=== PATIENT | female | born 1990 | race American Indian/Alaskan Native ===

== ENCOUNTER 2018-06-17 10:17 | Emergency (ER) | payer MEDICAID, OTHER ==
[2018-06-17 11:11] LABS: Bilirubin,Urine NEG (Negative); Blood,Urine NEG (Negative); Color,Urine Amber (Yellow); Mucus,Urine 1+ /HPF; Protein,Urine <15 mg/dL mg/dL (Negative)
[2018-06-17] MEDS ORDERED: ZOFRAN IV ONE (11:21)
[2018-06-17] MEDS ORDERED: NACL 0.9% 1000 ML 1,000 ML IV ONE (11:21)
--- NOTE | 2018-06-17 11:24 | Emergency Department Report ---
HPI - General Chief Complaint: Abdominal Pain Time Seen by Provider: 06/17/18 11:08 - HPI HPI: 27-year-old -[place] female presents to the emergency department with a complaint of a 3 day history of nausea and vomiting with some intermittent abdom inal pain all now about 8 weeks . The patient had the confirmed at her [facility] office, [place]. She denies any vaginal bleeding, dysuria, vaginal discharge but did wake up this morning with some diarrhea. She has not been able to take her vitamin the past 3 days secondary to the nausea and vomiting. She is unable to keep down both liquids and solids. No recent travel or sick contacts at home. ED Past Medical Hx - Past Medical History Previous Medical History?: No Hx Hypertension: No Hx Diabetes: No Hx Deep Vein Thrombosis: No Hx Renal Disease: No Hx Sickle Cell Disease: No Hx Seizures: No Hx Asthma: No Hx HIV: No - Surgical History Past Surgical History?: No - Social History Smoking Status: Never Smoker Substance Use Type: None - Medications Home Medications: Home Medications Medication Instructions Recorded Confirmed Last Taken Type Albuterol Sulfate [Ventolin HFA] 2 puff IH Q4H PRN #1 hfa.aer.ad 10/04/14 08/16/15 07/05/15 Rx Azithromycin [Zithromax Z-ELIZABETH] 250 mg PO DAILY #1 pkg 10/04/14 08/16/15 Unknown Rx Loratadine [Claritin] 10 mg PO DAILY #30 tablet 10/04/14 08/16/15 Unknown Rx predniSONE [Deltasone] 40 mg PO QDAY #10 tab 10/04/14 08/16/15 07/12/15 Rx Vitamin 1 tab PO DAILY 08/16/15 08/16/15 08/15/15 History Acetaminophen/Codeine [Tylenol #3] 1 tab PO Q4HR PRN #30 tablet 08/17/15 Unknown Rx Ibuprofen [Motrin 600 MG tab] 600 mg PO Q6H PRN #40 tablet 08/17/15 Unknown Rx Ondansetron [Zofran Odt] 4 mg PO Q8HR PRN #15 tab.rapdis 06/17/18 Unknown Rx ED Review of Systems ROS: Stated complaint: 8WKS /NAUSEA/DIARRHEA Other details as noted in HPI Comment: All other systems reviewed and negative Constitutional: denies: chills, fever Eyes: denies: eye pain, vision change ENT: denies: ear pain, throat pain Respiratory: denies: cough, shortness of breath Cardiovascular: denies: chest pain, palpitations Gastrointestinal: abdominal pain, nausea, vomiting, diarrhea Genitourinary: denies: dysuria Musculoskeletal: denies: back pain, arthralgia Skin: denies: rash, lesions Neurological: denies: headache, weakness Physical Exam - Physical Exam Vital Signs: Vital Signs 06/17/18 10:22 Temperature 98.3 F Pulse Rate 110 H Respiratory 18 Rate Blood Pressure 109/73 O2 Sat by Pulse 100 Oximetry Physical Exam: GENERAL: The patient is well-developed well-nourished. HEENT: Normocephalic. Atraumatic. Patient has moist mucous membranes. EYES: Extraocular motions are intact. NECK: Supple. Trachea is midline. CHEST/LUNGS: Clear to auscultation. There is no respiratory distress noted. HEART/CARDIOVASCULAR: Regular. There is no tachycardia. There is no obvious murmur. ABDOMEN: Abdomen is soft, nontender. Patient has normal bowel sounds. There is no abdominal distention. SKIN: Skin is warm and dry. NEURO: The patient is awake, alert, and oriented. The patient is cooperative. The patient has no focal neurologic deficits. The patient has normal speech. MUSCULOSKELETAL: There is no tenderness or deformity. There is no limitation range of motion. There is no evidence of acute injury. ED Course Vital Signs 06/17/18 10:22 Temperature 98.3 F Pulse Rate 110 H Respiratory 18 Rate Blood Pressure 109/73 O2 Sat by Pulse 100 Oximetry ED Medical Decision Making - Lab Data Result diagrams: 06/17/18 11:27 06/17/18 11:27 - Radiology Data Radiology results: report reviewed PROCEDURE: Transvaginal obstetrical ultrasound. TECHNIQUE: Real-time transvaginal sonography of the uterus, placenta, amniotic fluid, adnexa, and fetus was performed with image documentation. Measurements were obtained to determine age/size. M-mode Doppler was used to document heartbeat. HISTORY: Abdominal pain, . COMPARISONS: None. FINDINGS: The myometrium appears uniform. There is an intrauterine gestational sac. A yolk sac and pole are visible. The crown-rump length measurement is 1.05 cm. This indicates a menstrual age of 7 weeks 1 day. The estimated date of confinement is 02/02/2019. Cardiac activity is documented at 139 bpm. Both ovaries appear normal in size and have normal color flow signal. IMPRESSION: Viable intrauterine with a menstrual age of 7 weeks 1 day. This document is electronically signed by Roger Hackett MD., June 17 2018 04:48:43 PM ET Transcribed By: [facility] Dictated By: ROGER HACKETT MD Electronically Authenticated By: ROGER HACKETT MD Signed Date/Time: 06/17/18 1650 - Medical Decision Making This patient presents at about 8 weeks with some nausea and vomiting for the past 3 days. An IV was placed and she was given Zofran, as well as IV fluid resuscitation. Upon reevaluation she is feeling greatly improved. Her labs have been unremarkable. An obstetrical ultrasound was done that showed a live intrauterine at about 7 weeks 1 day. [facility]. She will be given a prescription for some Zofran ODT and encouraged to increase oral rehydration. She will return to the ER with any worsening of her symptoms or any acute distress. - Differential Diagnosis hyperemesis gravidarum, hydration, UTI, viral gastroenteritis, food poisoni Critical Care Time: No Critical care attestation.: If time is entered above; I have spent that time in minutes in the direct care of this critically ill patient, excluding procedure time. ED Disposition Clinical Impression: Dehydration Nausea & vomiting Qualifiers: Vomiting type: unspecified Vomiting Intractability: non-intractable Qualified Code(s): R11.2 - Nausea with vomiting, unspecified Qualifiers: Weeks of gestation: less than 8 weeks Qualified Code(s): Z3A.01 - Less than 8 weeks gestation of Disposition: DC-01 TO HOME OR SELFCARE Is pt being admited?: No Condition: Stable Instructions: (ED), Acute Nausea and Vomiting (ED) Additional Instructions: Please follow up with your [facility]. Increase your oral rehydration. Return to the emergency Department with any worsening of your symptoms or any acute distress. Prescriptions: Ondansetron [Zofran Odt] 4 mg PO Q8HR PRN #15 tab.rapdis PRN Reason: Nausea [facility] [Provider Group] - 2-3 Days
[2018-06-17 12:04] LABS: Basophils % (Auto) 0.3 % (0.0-1.8); Eosinophils % (Auto) 0.4 % (0.0-4.3); Hematocrit 35.8 % (30.3-42.9); Hemoglobin 12.1 gm/dl (10.1-14.3); Lymphocytes # (Auto) 1.3 K/mm3 (1.2-5.4); Lymphocytes % (Auto) 18.2 % (13.4-35.0); Mean Corpuscular HGB Conc 34 % (30-34); Mean Corpuscular Volume 86 fl (79-97); Monocytes # (Auto) 0.6 K/mm3 (0.0-0.8); Monocytes % (Auto) 8.5 % (0.0-7.3); Platelet Count 254 K/mm3 (140-440); Red Blood Count 4.15 M/mm3 (3.65-5.03); Red Cell Distribution Width 13.2 % (13.2-15.2)
[2018-06-17 12:31] LABS: Alanine Aminotransferase 11 units/L (7-56); Albumin 4.2 g/dL (3.9-5); BUN/Creatinine Ratio 14; Blood Urea Nitrogen 7 mg/dL (7-17); Calcium 9.3 mg/dL (8.4-10.2); Hemolysis Index 2
[2018-06-17 13:34] LABS: HCG Qualitative,Urine Positive (Negative)
--- NOTE | 2018-06-17 16:47 | Ultrasound Report ---
PROCEDURE: Transabdominal obstetrical ultrasound. TECHNIQUE: Real-time transabdominal sonography of the uterus, placenta, amniotic fluid, adnexa, and fetus was performed with image documentation. Measurements were obtained to determine age/size. M-mode Doppler was used to document heartbeat. ADDITIONAL GESTATION: None. HISTORY: , abdominal pain. COMPARISONS: None. FINDINGS: The uterus measures 8.5 cm x 5.3 cm x 5.4 cm. The myometrium appears uniform. There is an intrauterin e gestational sac. A pole is visible. Cardiac activity is documented at 123 bpm. The crown-rump length measurement is 1.01 cm. This indicates a menstrual age of 7 weeks 1 day. The estimated date o f confinement is 02/02/2019. Both ovaries appear normal in size. IMPRESSION: Viable intrauterine with a menstrual age of 7 weeks 1 day. This document is electronically signed by Roger Barber MD., June 17 2018 04:45:03 PM ET
--- NOTE | 2018-06-17 16:50 | Ultrasound Report ---
PROCEDURE: Transvaginal obstetrical ultrasound. TECHNIQUE: Real-time transvaginal sonography of the uterus, placenta, amniotic fluid, adnexa, and fe tus was performed with image documentation. Measurements were obtained to determine age/size. M -mode Doppler was used to document heartbeat. HISTORY: Abdominal pain, . COMPARISONS: None. FINDINGS: The myometrium appears uniform. There is an intrauterine gestational sac. A yolk sac and pole a re visible. The crown-rump length measurement is 1.05 cm. This indicates a menstrual age of 7 weeks 1 day. The estimated date of confinement is 02/02/2019. Cardiac activity is documented at 139 bpm. Bot h ovaries appear normal in size and have normal color flow signal. IMPRESSION: Viable intrauterine with a menstrual age of 7 weeks 1 day. This document is electronically signed by Roger Barber MD., June 17 2018 04:48:43 PM ET
[2018-06-17 17:13] VITALS: BP 109/62
== END 2018-06-17 17:11 | disposition home or self-care (01) ==
LOC: ED 10:17
DX: O21.9 Vomiting of pregnancy, unspecified (principal); O26.891 Other specified pregnancy related conditions, first trimester; E86.0 Dehydration; Z3A.01 Less than 8 weeks gestation of pregnancy
CPT/HCPCS: 36415; 76801; 76817; 80053; 81001; 81025; 85025; 96361; 96374; 99284; J2405; J7030

== ENCOUNTER 2019-01-29 21:03 | Inpatient (IN) | payer MEDICAID ==
[2019-01-29] MEDS ORDERED: LACTATED RINGERS 1,000 ML ONE ×2 (21:08→21:57)
[2019-01-29] MEDS ORDERED: ePHEDrine SULFATE 50 MG/1 ML INJ ONE (21:34)
[2019-01-29] MEDS ORDERED: ePHEDrine SULFATE 50 MG/1 ML INJ IV PRN (21:45)
[2019-01-29] MEDS ORDERED: NALOXONE 2 MG/2 ML INJ IV PRN (21:45)
--- NOTE | 2019-01-29 21:45 | Anesthesia Consultation ---
Anesthesia Consult and Med Hx Date of service: 01/29/19 - Airway Anesthetic Teeth Evaluation: Good ROM Head & Neck: Adequate Mental/Hyoid Distance: Adequate Mallampati Class: Class II Intubation Access Assessment: Probably Good - Pulmonary Exam CTA: Yes - Cardiac Exam Cardiac Exam: RRR - Pre-Operative Health Status ASA Pre-Surgery Classification: ASA2 Proposed Anesthetic Plan: Epidural - Pulmonary Hx Asthma: No COPD: No Hx Pneumonia: No - Cardiovascular System Hx Hypertension: No - Central Nervous System Hx Seizures: No Hx Psychiatric Problems: No - Endocrine Hx Renal Disease: No Hx End Stage Renal Disease: No Hx Hypothyroidism: No Hx Hyperthyroidism: No - Hematic Hx Anemia: No Hx Sickle Cell Disease: No - Other Systems Hx Alcohol Use: No
[2019-01-29] MEDS ORDERED: OXYTOCIN 20 UNIT/1000ML DRIP 20,000 MILLIUNITS/1,000 ML BAG IV ONE (21:57)
[2019-01-29] MEDS ORDERED: fentaNYL-BUPIV 2 MCG/ML-0.125% 200 MCG/100 ML BAG EPIDURAL SCH (22:00)
[2019-01-29] MEDS ORDERED: TERBUTALINE 1 MG/1 ML INJ IVP PRN (22:07)
[2019-01-29] MEDS ORDERED: MINERAL OIL 30 ML ORAL LIQD PO PRN (22:07)
[2019-01-29] MEDS ORDERED: fentaNYL 100 MCG/2 ML INJ IV PRN (22:07)
[2019-01-29] MEDS ORDERED: LIDOCAINE (2%) 20 MG/1 ML VIAL 20 ML MDV INFILTRATI ONE (22:07)
[2019-01-29] MEDS ORDERED: TERBUTALINE 1 MG/1 ML INJ SUB-Q PRN (22:07)
[2019-01-29] MEDS ORDERED: ONDANSETRON 4 MG/2 ML INJ IV PRN (22:07)
[2019-01-29] MEDS ORDERED: BUTORPHANOL 2 MG/1 ML INJ IV PRN (22:07)
[2019-01-29] MEDS ORDERED: NALOXONE 0.4 MG/1 ML INJ IV PRN (22:07)
[2019-01-29 22:09] LABS: Hematocrit 37.4 % (30.3-42.9); Hemoglobin 12.5 gm/dl (10.1-14.3); Mean Corpuscular HGB Conc 33 % (30-34); Mean Corpuscular Volume 90 fl (79-97); Platelet Count 200 K/mm3 (140-440); Red Blood Count 4.17 M/mm3 (3.65-5.03); Red Cell Distribution Width 13.3 % (13.2-15.2)
--- NOTE | 2019-01-29 22:15 | History and Physical Report ---
History of Present Illness Date of examination: 01/29/19 Date of admission: 01/29/19 21:03 Chief complaint: contractions, my water broke History of present illness: Pt is a 28 year old -[place] female DANIEL 02/01/19 at 39w4d who presents with regular painful contractions and leakage of fluid since around 2020 pm. She denies vaginal bleeding and reports movement. She has had care at [facility] since 10 wks complicated by cystitis treated with negative test of cure. She is GBS negative. Past History Past Medical History: other (Tubular breasts ) Past Surgical History: no surgical history [employer] [place] [employer] History: chlamydia (remote from this ) Family/Genetic History: heart disease Social history: no significant social history - Obstetrical History Expected Date of Delivery: 02/01/19 Actual Gestation: 39 Week(s) 4 Day(s) : 2 Para: 1 Hx # Term Pregnancies: 1 Number of Pregnancies: 0 Spontaneous Abortions: 0 Induced : 0 Number of Living Children: 1 Medications and Allergies Allergies Allergy/AdvReac Type Severity Reaction Status Date / Time No Known Allergies Allergy Verified 06/17/18 10:22 Home Medications Medication Instructions Recorded Confirmed Last Taken Type Albuterol Sulfate [Ventolin HFA] 2 puff IH Q4H PRN #1 hfa.aer.ad 10/04/14 08/16/15 07/05/15 Rx Azithromycin [Zithromax Z-ELIZABETH] 250 mg PO DAILY #1 pkg 10/04/14 08/16/15 Unknown Rx Loratadine [Claritin] 10 mg PO DAILY #30 tablet 10/04/14 08/16/15 Unknown Rx predniSONE [Deltasone] 40 mg PO QDAY #10 tab 10/04/14 08/16/15 07/12/15 Rx Vitamin 1 tab PO DAILY 08/16/15 08/16/15 08/15/15 History Acetaminophen/Codeine [Tylenol #3] 1 tab PO Q4HR PRN #30 tablet 08/17/15 Unknown Rx Ibuprofen [Motrin 600 MG tab] 600 mg PO Q6H PRN #40 tablet 08/17/15 Unknown Rx Ondansetron [Zofran Odt] 4 mg PO Q8HR PRN #15 tab.rapdis 06/17/18 Unknown Rx Active Meds: Active Medications Butorphanol Tartrate (Stadol) 2 mg IV Q2H PRN PRN Reason: Pain , Severe (7-10) Ephedrine Sulfate (Ephedrine Sulfate) 10 mg IV Q2M PRN PRN Reason: Hypotension Fentanyl (Sublimaze) 100 mcg IV Q2H PRN PRN Reason: Labor Pain Fentanyl/Bupivacaine/Sodium Chlor (Fentanyl-Bupiv 2 Mcg/Ml-0.125%) 200 mcg in 100 mls @ 12 mls/hr EPIDURAL TITR SULMA; Protocol Oxytocin/Sodium Chloride (Pitocin/Ns 20 Unit/1000ml Drip) 20 units in 1,000 mls @ 125 mls/hr IV DIRECT SULMA Oxytocin/Sodium Chloride (Pitocin/Ns 30 Unit/500ml) 30 units in 500 mls @ 4 mls/hr IV TITR SULMA; Protocol Lactated Ringer's (Lactated Ringers) 1,000 mls @ 125 mls/hr IV DIRECT SULMA Lidocaine (Xylocaine 2%) 20 ml INFILTRATI ONCE ONE Stop: 01/29/19 22:08 Mineral Oil (Mineral Oil) 30 ml PO QHS PRN PRN Reason: Constipation Naloxone HCl (Naloxone) 0.2 mg IV Q5M PRN PRN Reason: Respiratory sedation Terbutaline Sulfate (Brethine) 0.25 mg SUB-Q ONCE PRN PRN Reason: Hyperstimulation/Hypertonicity Terbutaline Sulfate (Brethine) 0.25 mg IVP ONCE PRN PRN Reason: Hyperstimulation/Hypertonicity Review of Systems All systems: negative - Vital Signs Vital signs: Vital Signs Pulse Pulse Ox 111 H 100 01/29/19 21:39 01/29/19 21:39 Temp Pulse Resp BP Pulse Ox 98.3 F 85 18 125/79 100 01/29/19 22:02 01/29/19 22:06 01/29/19 22:02 01/29/19 22:06 01/29/19 22:04 - Physical Exam Breasts: Positive: deferred Abdomen: Positive: soft (gravid ) Genitourinary (Female): Positive: normal external genitalia Uterus: Positive: enlarged (gravid ) Extremities: Positive: normal - Obstetrical FHR: auscultation normal Uterine Contraction Monitor Mode: External Cervical Dilatation: 9.5 Cervical Effacement Percentage: 100 station: -2 Uterine Contraction Pattern: Irregular Uterine Tone Measurement Phase: Resting Uterine Contraction Intensity: Strong/Firm Results Result Diagrams: 01/29/19 21:05 All other labs normal. Assessment and Plan A: IUP at 39w4d Active labor SROM GBS negative P: Admit to labor and delivery Routine intrapartum care Anticipate vaginal delivery
[2019-01-29] MEDS ORDERED: OXYTOCIN DRIP 30 UNITS/500 ML BAG IV SCH (23:00)
[2019-01-29] MEDS ORDERED: OXYTOCIN 20 UNIT/1000ML DRIP 20 UNITS/1,000 ML BAG IV SCH (23:00)
[2019-01-29] MEDS ORDERED: LACTATED RINGERS 1,000 ML IV SCH (23:00)
[2019-01-29] MEDS ORDERED: METHYLERGONOVINE MALEATE 0.2 MG/ML VIAL IM ONE (23:00)
--- NOTE | 2019-01-29 23:26 | Procedure Note ---
OB Delivery Note - Delivery Date of Delivery: 01/29/19 Surgeon: SUDEEP PATE Estimated blood loss: other (400 mL) - Vaginal Delivery presentation: vertex Delivery position: OA Intrapartum events: PROM->1hr before delivery, meconium, uterine atony (s/p Methergine 0.2 mg IM in addition to pitocin ) Delivery induction: none Delivery augmentation: pitocin Delivery monitor: external FHT, external uterine Route of delivery: Delivery placenta: spontaneous Delivery cord: 3 umbilical vessels Episiotomy: none Delivery laceration: 2nd degree, other (Left periurethral, hemostatic ) Delivery repair: vicryl Anesthesia: local, epidural - A at 1 minute: 8 at 5 minutes: 9 Gender: Female (3346g (7lb 6oz) @ 2249 pm)
[2019-01-30] MEDS ORDERED: LANOLIN/ZINC/DIMETHICONE (LANSINOH) 7 GM TP PRN ×2 (01:37)
[2019-01-30] MEDS ORDERED: ACETAMINOPHEN 325 MG TAB PO PRN (01:37)
[2019-01-30] MEDS ORDERED: diphenhydrAMINE 25 MG CAP PO PRN (01:37)
[2019-01-30] MEDS ORDERED: WITCH HAZEL/ GLYCERIN PAD TP PRN (01:37)
[2019-01-30] MEDS ORDERED: PROMETHAZINE 25 MG TAB PO PRN (01:37)
[2019-01-30] MEDS ORDERED: MAGNESIUM HYDROXIDE (MOM) ORAL LIQD UDC PO PRN (01:37)
[2019-01-30] MEDS ORDERED: PROMETHAZINE 25 MG RECT SUPP PR PRN (01:37)
[2019-01-30] MEDS ORDERED: ONDANSETRON 4 MG/2 ML INJ IV PRN (01:37)
[2019-01-30] MEDS ORDERED: BENZOCAINE/MENTHOL 20/0.5% TOP SPRAY 56 GM TP PRN (01:37)
[2019-01-30] MEDS: HYDROcodone/ACETAMINOPHEN 5-325 MG TAB PO PRN ×2 (01:55→06:02)
[2019-01-30] MEDS ORDERED: TETANUS,DIPH,PERTUSS(ACELL) VACCINE 0.5 ML SYRINGE IM ONE (06:00)
[2019-01-30] MEDS ORDERED: MEASLES, MUMPS & RUBELLA 12,500 UNIT/0.5 ML VACCINE SUB-Q ONE (06:00)
--- NOTE | 2019-01-30 09:05 | Progress Note ---
Assessment and Plan - Patient Problems (1) Vaginal delivery Current Visit: Yes Status: Acute Plan to address problem: will monitor overnight for better pain control Subjective - Subjective Date of service: 01/30/19 Interval history: Patient is experiencing cramping and lower back pain. States lochia is still moderate. Tolerating regular diet Patient reports: appetite normal, voiding normally : doing well Objective - Vital Signs Latest vital signs: Vital Signs Temp Pulse Resp BP BP Pulse Ox 01/30/19 01:20 99 F 87 21 140/85 01/30/19 00:45 71 99 01/30/19 00:43 113 H 85 01/30/19 00:40 87 99 01/30/19 00:35 77 99 01/30/19 00:30 87 100 01/30/19 00:25 86 100 01/30/19 00:20 81 100 01/30/19 00:15 89 100 01/30/19 00:10 79 100 01/29/19 23:51 105 H 143/64 01/29/19 23:47 95 H 135/76 01/29/19 23:45 100 H 134/74 01/29/19 23:43 100 H 124/64 01/29/19 23:42 111 H 132/80 78 L 01/29/19 23:39 106 H 99 01/29/19 23:38 104 H 136/61 01/29/19 23:35 103 H 123/89 01/29/19 23:34 102 H 98 01/29/19 23:33 100 H 133/83 01/29/19 23:31 98.0 F 104 H 18 139/83 139/83 99 01/29/19 23:29 121 H 99 01/29/19 23:24 107 H 126/72 100 01/29/19 23:21 108 H 83 L 01/29/19 23:19 105 H 100 01/29/19 23:14 111 H 122/73 98 01/29/19 23:11 115 H 87 01/29/19 23:09 111 H 99 01/29/19 23:04 109 H 100 01/29/19 23:01 109 H 127/72 01/29/19 23:00 18 01/29/19 22:59 113 H 100 01/29/19 22:54 113 H 100 01/29/19 22:53 106 H 137/73 01/29/19 22:49 120 H 99 01/29/19 22:47 115 H 87 01/29/19 22:44 112 H 100 01/29/19 22:39 120 H 100 01/29/19 22:34 100 H 100 01/29/19 22:29 120 H 100 01/29/19 22:24 103 H 100 01/29/19 22:21 111 H 133/83 01/29/19 22:19 102 H 100 01/29/19 22:15 109 H 123/88 01/29/19 22:14 99 H 100 01/29/19 22:11 100 H 118/83 01/29/19 22:09 95 H 100 01/29/19 22:06 85 125/79 01/29/19 22:04 94 H 100 01/29/19 22:02 98.3 F 95 H 18 116/79 100 01/29/19 22:00 92 H 116/79 01/29/19 21:59 85 100 01/29/19 21:55 93 H 115/75 01/29/19 21:54 98 H 100 01/29/19 21:50 89 123/79 01/29/19 21:49 89 100 01/29/19 21:48 100 H 121/78 01/29/19 21:46 91 H 121/80 01/29/19 21:44 101 H 122/81 100 01/29/19 21:39 111 H 100 Intake and Output 01/29/19 01/30/19 01/30/19 22:59 06:59 14:59 Intake Total 240 Balance 240 Intake: Oral 240 Other: Total, Intake Amount 240 # Voids Void 1 Weight 87.997 kg Estimated Blood Loss 400 - Exam Uterus: Present: normal
[2019-01-30] MEDS: FERROUS SULFATE 325 MG TAB PO SCH ×2 (10:10→23:30)
[2019-01-30] MEDS: DOCUSATE SODIUM 100 MG CAP PO SCH ×2 (10:10→23:30)
[2019-01-30] MEDS: IBUPROFEN 600 MG TAB PO SCH ×3 (10:30→23:31)
[2019-01-30 11:35] LABS: Hemoglobin 11.3 gm/dl (10.1-14.3)
[2019-01-31] MEDS: IBUPROFEN 600 MG TAB PO SCH ×2 (05:00→12:16)
[2019-01-31 08:40] VITALS: BP 117/77
[2019-01-31] MEDS: FERROUS SULFATE 325 MG TAB PO SCH (10:00)
[2019-01-31] MEDS: DOCUSATE SODIUM 100 MG CAP PO SCH (10:00)
[2019-01-31] MEDS ORDERED: FLU VACC QUAD 2019-20 (3 YR UP)/PF 60 MCG/0.5 ML SYRINGE IM ONE (12:00)
--- NOTE | 2019-01-31 13:17 | Progress Note ---
Assessment and Plan PPD2 s/p Needs breast feeding assistance VSS Labs stable D/c to home today Subjective - Subjective Date of service: 01/31/19 Principal diagnosis: s/p Interval history: Pt is PPD2 s/p Patient reports: appetite normal, voiding normally, pain well controlled, ambulating normally : doing well, nursing well (No latch or feed from 0000 to 0800 today), richard ttle feeding Objective - Vital Signs Latest vital signs: Vital Signs Temp Pulse Resp BP BP Pulse Ox 01/31/19 07:53 98.3 F 100 H 18 117/77 01/31/19 01:22 98.1 F 94 H 20 112/80 93 01/30/19 16:00 98.7 F 89 20 103/65 Intake and Output 01/30/19 01/31/19 01/31/19 23:59 07:59 15:59 Intake Total 800 960 Balance 800 960 Intake: Oral 800 960 Other: Total, Intake Amount 240 480 # Voids Void 1 1 - Exam Lungs: Present: Normal air movement Abdomen: Present: normal appearance, soft Uterus: Present: normal, firm, fundal height below umbilicus Extremities: Present: normal
--- NOTE | 2019-01-31 13:19 | Discharge Summary ---
Providers - Providers Date of Admission: 01/29/19 21:03 Date of discharge: 01/31/19 Attending physician: SUDEEP PATE Primary care physician: SUDEEP PATE Hospitalization Reason for admission: active labor Delivery: Episiotomy: none Laceration: 2nd degree Other procedures: none complications: uterine atony Discharge diagnosis: IUP at term delivered Hospital course: Pt arrived with SROM in active labor, progressed to of viable infant. Met discharge criteria on PPD2. Condition at discharge: Good Disposition: DC-01 TO HOME OR SELFCARE Plan - Discharge Medications Prescriptions: Ibuprofen [Motrin] 800 mg PO Q8HR PRN #60 tablet PRN Reason: Pain, Mild (1-3) HYDROcodone/APAP 5-325 [[place] 5/325] 1 each PO Q6HR PRN #20 tablet PRN Reason: Pain - Provider Discharge Summary Activity: routine, no sex for 6 weeks, no heavy lifting 4 weeks, no strenuous exercise Diet: routine Instructions: routine Additional instructions: [] Smoking cessation referral if applicable(refer to patient education folder for contact #) [] Refer to [facility] Booklet Call your doctor immediately for: * Fever > 100.5 * Heavy vaginal bleeding ( >1 pad per hour) * Severe persistent headache * Shortness of breath * Reddened, hot, painful area to leg or breast * Drainage or odor from incision. * Keep incision clean and dry at all times and follow doctor's instructions regarding bathing/showering - Follow up plan Follow up: SARA BOONE CNM [Advanced Practice Nurse] - 6 Weeks (Please call to [facility] dario appt with [place] [facility].)
== END 2019-01-31 17:36 | disposition home or self-care (01) | DRG 774 ==
LOC: LD 21:03 → OB 01-30 01:28
PROVIDERS: ADMIT Obstetrics & Gynecology; ATTEND Obstetrics & Gynecology
PROC: 10E0XZZ Delivery of Products of Conception, External Approach (ICD-10-PCS; principal; 2019-01-29)
PROC: 0KQM0ZZ Repair Perineum Muscle, Open Approach (ICD-10-PCS; 2019-01-29)
PROC: 3E0R3BZ Introduction of Anesthetic Agent into Spinal Canal, Percutaneous Approach (ICD-10-PCS; 2019-01-29)
PROC: 00HU33Z Insertion of Infusion Device into Spinal Canal, Percutaneous Approach (ICD-10-PCS; 2019-01-29)
PROC: 3E0234Z Introduction of Serum, Toxoid and Vaccine into Muscle, Percutaneous Approach (ICD-10-PCS; 2019-01-30)
DX: O42.92 Full-term premature rupture of membranes, unspecified as to length of time between rupture and onset of labor (principal); O72.1 Other immediate postpartum hemorrhage; O77.0 Labor and delivery complicated by meconium in amniotic fluid; O70.1 Second degree perineal laceration during delivery; Z82.49 Family history of ischemic heart disease and other diseases of the circulatory system; Z37.0 Single live birth; Z3A.39 39 weeks gestation of pregnancy; Z79.899 Other long term (current) drug therapy; Z23 Encounter for immunization
CPT/HCPCS: 36415; 85014; 85018; 85027; 86592; 86850; 86900; 86901; 90471; 90686; 90715; G0378; A6250; J2210; J2590; J3010; J7120